=== PATIENT | female | born 1975 | race Caucasian/White ===

== ENCOUNTER 2018-08-11 06:04 | Day surgery (SDC) | payer BC ==
[2018-08-09 16:24] LABS: EOSINOPHILS # (AUTO) 0.1 X10'3 (0-0.9); RED CELL DISTRIBUTION WIDTH 17.2 % (11.5-14.5)
[2018-08-09 16:25] LABS: BASOPHILS # (AUTO) 0.1 X10'3 (0-0.2); BASOPHILS % (AUTO) 1.3 % (0-1); EOSINOPHILS % (AUTO) 1.4 % (0-6); LYMPHOCYTES # (AUTO) 1.3 X10'3 (1.1-4.8); LYMPHOCYTES % (AUTO) 20.9 % (21-51); MEAN CORPUSCULAR HEMOGLOBIN 25.5 PG (27.0-31.0); MEAN CORPUSCULAR HGB CONC 33.7 g/dL (33.0-36.5); MEAN CORPUSCULAR VOLUME 75.5 FL (78-98); MEAN PLATELET VOLUME 8.1 FL (7.4-10.4); MONOCYTES # (AUTO) 0.5 X10'3 (0-0.9); NEUTROPHILS # (AUTO) 4.4 X10'3 (1.8-7.7); NEUTROPHILS % (AUTO) 68.4 % (42-75); PRE OP HEMATOCRIT 33.1 % (35.0-45.0); PRE OP HEMOGLOBIN 11.2 g/dL (12.0-16.0); PRE OP PLATELET COUNT 321 X10'3 (140-440); RED BLOOD COUNT 4.38 X10'6 (4.20-5.60)
[2018-08-09 16:35] LABS: CLARITY,URINE CLEAR (Clear); COLOR,URINE YELLOW (Yellow); GLUCOSE, URINE NEGATIVE (Neg); KETONES,URINE NEGATIVE (Neg); LEUKOCYTE ESTERASE ,URINE NEGATIVE (Neg); NITRITES, URINE NEGATIVE (Neg); OCCULT BLOOD,URINE MODERATE (Neg); PH,URINE 6.5 (4.8-8.0); PROTEIN,URINE NEGATIVE (Neg); UROBILINOGEN,URINE 0.2 E.U/dL (0.2-1.0)
[2018-08-09 16:36] LABS: ALBUMIN 3.9 G/DL (3.4-5.0); ALBUMIN/GLOBULIN RATIO 1.1 (1.1-1.5); ALKALINE PHOSPHATASE 65 IU/L (46-116); BLOOD UREA NITROGEN 14 MG/DL (7-18); BUN/CREATININE RATIO 16.1 (6.6-38.0); CALCIUM 9.2 MG/DL (8.5-10.1); CHLORIDE 104 MMOL/L (99-107); CREATININE 0.87 MG/DL (0.40-0.90); PRE OP ALT 21 U/L (30-65); PRE OP ANION GAP 7 (8-16); PRE OP AST 17 U/L (10-37); PRE OP BILIRUB, TOTAL 0.2 MG/DL (0.0-1.0); PRE OP GLUCOSE 113 MG/DL (70-104); PRE OP SODIUM 137 MMOL/L (135-145); TOTAL CARBON DIOXIDE 25.7 MMOL/L (24-32); TOTAL PROTEIN 7.5 G/DL (6.4-8.2); eGFR 71 ML/MIN
[2018-08-09 16:38] LABS: PLATELET ESTIMATE NORMAL
[2018-08-09 16:38] LABS: UA COLLECTION TYPE CLN CATCH MIDSTREAM
[2018-08-09 16:39] LABS: ANISOCYTOSIS 1+; MICROCYTOSIS 1+
[2018-08-09 16:42] LABS: HCG SERUM QL NEGATIVE
[2018-08-09 16:43] LABS: PRE OP POTASSIUM 3.3 MMOL/L (3.4-5.1)
[2018-08-09 16:46] LABS: BACTERIA,URINE FEW /HPF (Neg); RBC,URINE 0-2 /HPF (0-2); SQUAMOUS EPITHELIAL CELL,UR FEW /LPF (FEW); WBC,URINE 0-4 /HPF (0-4)
[~2018-08-11] VITALS: Ht 172.7 cm; Wt 68.0 kg
[2018-08-11] VITALS (12 sets, daily range): BP systolic 92–135; BP diastolic 44–72
[~2018-08-11 06:04] MED LIST: NO HOME MEDS; cefotetan 2gm/isosm dext IVPB 50 ML IV ONE; famotidine 20mg tablet PO ONE; ringers solution, lacted 1,000 ML IV SCH
[2018-08-11] MEDS ORDERED: epiNEPHrine 1 mg/ml inj ONE (07:08)
[2018-08-11] MEDS ORDERED: BUPIVAcaine/PF 2.5mg/ml (0.25%) 10ml vial ONE (07:08)
[2018-08-11] MEDS ORDERED: ringers solution, lacted 1,000 ML IV SCH (08:28)
[2018-08-11] MEDS ORDERED: proCHLORperazine 10 MG/2 ml inj IV PRN (08:30)
[2018-08-11] MEDS ORDERED: ondansetron/PF 4mg/2ml inj IV PRN (08:30)
[2018-08-11] MEDS ORDERED: meperidine/PF 25mg/ml syringe IV PRN ×2 (08:30)
[2018-08-11] MEDS ORDERED: morphine 4 MG/ML inj SYRINge IV PRN ×2 (08:30)
[2018-08-11] MEDS ORDERED: fentaNYL/PF 50MCG/1 ML 2ML syringe ONE (08:34)
[2018-08-11] MEDS ORDERED: sevoflurane 250ml liquid IH ONE (08:35)
[2018-08-11] MEDS ORDERED: midazolam 2 mg/2 ml injection ONE (08:35)
[2018-08-11 08:41] LABS: ISTAT ANION GAP 9 (8-12); ISTAT BUN 11 mg/dL (6-19); ISTAT CL 105 mmol/L (99-107); ISTAT CREATININE 0.6 mg/dL (0.6-1.1); ISTAT GLUCOSE 94 mg/dL (70-104); ISTAT HGB 10.9 g/dl (12.0-16.0); ISTAT Hct 32 %PCV (35-48); ISTAT IONIZED CALCIUM 1.24 mmol/L (1.03-1.32); ISTAT K 3.9 mmol/L (3.5-5.1); ISTAT NA 140 mmol/L (135-145); ISTAT TOTAL CO2 26 mmol/L (24-32); ISTAT eGFR > 90 ML/MIN; POC BUN/CREATININE RATIO 18.3 (6.6-38.0)
[2018-08-11] MEDS ORDERED: glycopyrrolate 0.2mg/ml inj ONE (09:15)
[2018-08-11] MEDS ORDERED: dexamethasone sod phosphate 4mg/ml inj. ONE (09:15)
[2018-08-11] MEDS ORDERED: ondansetron/PF 4mg/2ml inj ONE (09:15)
[2018-08-11] MEDS ORDERED: propofol inj 20 ML IV ONE (09:15)
[2018-08-11] MEDS ORDERED: rocuronium 10mg/ml inj IV ONE (09:15)
[2018-08-11] MEDS ORDERED: LIDOcaine 2% (20mg/ml) 5ml vial ONE (09:15)
[2018-08-11] MEDS ORDERED: neostigmine methylsulfate 1 MG/ML 10ml vial ONE (09:15)
--- NOTE | 2018-08-11 09:50 | NUR ---
Received from OR via , accompanied by Anesthesiologist DR HANCOCK and report given by Anesthesiolgist. AWAKENS TO VOICE. VITALS STABLE. NO BLEEDING NOTED. MARGARET PAIN. ABD SOFT.
[2018-08-11] MEDS: meperidine/PF 25mg/ml syringe IV PRN ×2 (10:04→10:15)
[2018-08-11] MEDS ORDERED: HYDROcodone/acetaminophen 10/325mg tab PO PRN (10:40)
--- NOTE | 2018-08-11 11:30 | NUR ---
pt brought to room 246a, pain tolerable. needs to void before dc home. all instr given to pt in rr by saige recio.
--- NOTE | 2018-08-11 11:30 | NUR ---
Report called to receiving nurse. Transferred via [facility] . Special Issues communicated to receiving nurse. AWAKE AND ORIENTED. VITALS STABLE. STATES PAIN IMPROVING. UNABLE TO VOID AT THIS TIME. TO PAS RM [id number] AT THIS TIME.
--- NOTE | 2018-08-11 12:10 | NUR ---
pt gaby fluids well. voided qs. iv dc'd. to pov via wc for dc home
== END 2018-08-11 12:10 | disposition home or self-care (01) ==
LOC: PAS 06:04
PROVIDERS: ATTEND Obstetrics & Gynecology Obstetrics
DX: Z30.2 Encounter for sterilization (principal); Z30.432 Encounter for removal of intrauterine contraceptive device; N80.3 Endometriosis of pelvic peritoneum; D25.9 Leiomyoma of uterus, unspecified; D64.9 Anemia, unspecified; Z79.891 Long term (current) use of opiate analgesic; Z79.1 Long term (current) use of non-steroidal anti-inflammatories (NSAID); Z79.899 Other long term (current) drug therapy
CPT/HCPCS: 36415; 49585; 58301; 58662; 58670; 71046; 80047; 80053; 81001; 82948; 84703; 85025; 86885; 86900; 86901; 93005; J0171; J1100; J2001; J2175; J2250; J2405; J2704; J2710; J3010; J3490; J7120; A7000